=== PATIENT | male | born 2000 | race Caucasian/White ===

== ENCOUNTER 2024-09-02 14:56 | Outpatient (CLI) | payer BC | END 2024-09-02 14:57 | disposition home or self-care (01) | LOC: CSHCT 14:56 | PROVIDERS: ATTEND Nurse Practitioner Family | DX: H66.014 Acute suppurative otitis media with spontaneous rupture of ear drum, recurrent, right ear (principal); H73.891 Other specified disorders of tympanic membrane, right ear; H74.8X1 Other specified disorders of right middle ear and mastoid | CPT/HCPCS: 70480 ==